=== PATIENT | female | born 1985 | race Caucasian/White ===

== ENCOUNTER 2018-11-30 09:31 | Emergency (ER) | payer OTHER ==
[~2018-11-30] VITALS: Ht 154.9 cm; Wt 68.0 kg
[~2018-11-30 09:31] MED LIST: Augmentin 500-1 EACH PO; IBUP800 PO; Norco 10-325 T1 EACH PO; ONDA4ODT MM; OXYACE5T PO; Verotin-Gr Cap1 EACH PO
[2018-11-30 10:17] LABS: BASOPHILS ABSOLUTE AUTO 0.08 K/mm3 (0.00-0.23); BASOPHILS PERCENT AUTO 1 % (0-2); EOSINOPHILS ABSOLUTE AUTO 0.16 K/mm3 (0.00-0.68); EOSINOPHILS PERCENT AUTO 2 % (0-6); Hematocrit 45.4 % (33.0-51.0); IMMATURE GRAN ABSOLUTE AUTO 0.06 K/mm3 (0.00-0.10); IMMATURE GRAN PERCENT AUTO 1 % (0-1); LYMPHOCYTES ABSOLUTE AUTO 1.57 K/mm3 (0.84-5.20); LYMPHOCYTES PERCENT AUTO 16 % (21-46); MONOCYTES PERCENT AUTO 8 % (4-13); Mean Corpuscular HGB 32.3 pg (26.0-34.0); Mean Corpuscular Volume 98 fL (80-100); Mean Platelet Volume 11.3 fL (9.1-12.4); NEUTROPHILS ABSOLUTE AUTO 7.08 K/mm3 (1.96-9.15); NEUTROPHILS PERCENT AUTO 73 % (41-73); Platelet Count 197 K/mm3 (150-400); RDW Coefficient Variation 11.9 % (11.7-14.2); RDW Standard Deviation 42.9 fL (35.1-46.3); Red Blood Cell Count 4.64 M/mm3 (3.80-5.20); White Blood Cell Count 9.75 K/mm3 (4.00-11.30)
[2018-11-30] MEDS ORDERED: CEFD300 PO (10:19)
[2018-11-30] MEDS ORDERED: METO50ER PO (10:20)
[2018-11-30 10:28] LABS: Source, Urine Clean Catch
[2018-11-30 10:35] LABS: Alanine Aminotransfer (ALT/SGP 291 U/L (12-78); Albumin, Blood 4.2 g/dL (3.4-5.0); Albumin/Globulin Ratio 0.9 (0.8-1.8); Alk Phos 91 U/L (50-136); Anion Gap 8 mmol/L (6-16); Aspartate Aminotrans (AST/SGOT 434 U/L (12-37); Bilirubin, Total 2.1 mg/dL (0.1-1.0); Blood Urea Nitrogen 8 mg/dL (8-24); Bun/Creatinine Ratio 14.3 (12.0-20.0); CO2, Blood 26 mmol/L (21-32); Calcium, Blood 9.1 mg/dL (8.5-10.1); Chloride, Blood 104 mmol/L (98-108); Creatinine, Blood 0.56 mg/dL (0.40-1.00); Globulin, Blood 4.5 g/dL (2.2-4.0); Glomerular Filtration Rate >60 (60-); Glucose, Blood 103 mg/dL (70-99); Potassium, Blood 3.1 mmol/L (3.5-5.5); Sodium, Blood 138 mmol/L (136-145); Total Protein, Blood 8.7 g/dL (6.4-8.2)
[2018-11-30 10:44] LABS: Appearance, Urine Clear (Clear); Bilirubin, Urine Neg (Neg); Blood, Urine 1+ (Neg); Color, Urine Yellow (P-Yellow); Glucose Qualitative, Urine Neg (Neg); Ketones, Urine 1+ (Neg); Leukocyte Esterase, Urine 1+ (Neg); Nitrite, Urine Neg (Neg); Protein, Urine Neg (Neg); Specific Gravity, Urine 1.005 (1.003-1.022); Urobilinogen, Urine NORM (Normal)
[2018-11-30 11:05] LABS: Bacteria Rare /hpf; Red Blood Cells, Urine Not Seen /hpf (0-2); Squamous Epithelial Cells Mod /hpf (Few); White Blood Cells, Urine 0-2 /hpf (0-5)
[2018-11-30] MEDS ORDERED: Zofran8 MG PO (13:52)
[2018-11-30 14:37] LABS: International Normalized Ratio 0.95; Prothrombin Time Results 10.1 Sec (9.7-11.5)
[2018-12-01 07:14] LABS: HBSAG SCREEN Negative (Negative); HCV ANTIBODY <0.1 (0.0-0.9); HEP A AB, IGM Negative (Negative); HEP B CORE AB, TOT Negative (Negative)
== END 2018-11-30 14:39 | disposition home or self-care (01) ==
LOC: ER 09:31
PROVIDERS: Physician Assistant
DX: K80.20 Calculus of gallbladder without cholecystitis without obstruction (principal); I10 Essential (primary) hypertension; Z79.899 Other long term (current) drug therapy; Z88.1 Allergy status to other antibiotic agents
CPT/HCPCS: 36415; 76705; 80053; 81001; 83690; 84703; 85025; 85610; 86317; 86704; 86709; 86803; 87086; 87340; 99284-25

== ENCOUNTER → 2019-01-22 | Outpatient (CLI) | payer OTHER ==
[~2019-01-22] MED LIST changes: +CEFD300 PO; +METO50ER PO; +Zofran8 MG PO
== END ==
LOC: LAB 13:21 → LAB SHORT 13:21
DX: E05.90 Thyrotoxicosis, unspecified without thyrotoxic crisis or storm (principal)
CPT/HCPCS: 84443

== ENCOUNTER → 2021-02-22 | Outpatient (CLI) | payer OTHER | END | disposition home or self-care (01) | LOC: LAB SHORT 13:20 → LAB 13:20 | DX: K92.1 Melena (principal); R19.7 Diarrhea, unspecified; R10.11 Right upper quadrant pain; R10.31 Right lower quadrant pain | CPT/HCPCS: 83993 ==

== ENCOUNTER → 2023-10-24 | Outpatient (CLI) | payer BC | END | disposition home or self-care (01) | LOC: LAB SHORT 16:56 → LAB 16:56 | DX: R21 Rash and other nonspecific skin eruption (principal) | CPT/HCPCS: 87070; 87077; 87147; 87186; 87205 ==

== ENCOUNTER 2024-03-17 07:27 | Day surgery (SDC) | payer BC ==
[~2024-03-17] VITALS: Ht 154.9 cm; Wt 46.8 kg
[2024-03-17] VITALS (11 sets, daily range): BP systolic 89–153; BP diastolic 51–96
[~2024-03-17 07:27] MED LIST changes: +CLOBETASOL EMOL15 G1 TOP; +Children's Che1 EAC1 PO; +FISH OIL PO; +PROBIOTIC; +Prinivil10 MG PO; +VITAMIN D3 PO; +VITAMINS LIPOTROPICS
[2024-03-17] MEDS ORDERED: CeFAZolin Sodium 2,000 MG in NS 100 ML IV SCH (08:10)
[2024-03-17] MEDS ORDERED: Lactated Ringer's 1,000 ML IV SCH (08:10)
[2024-03-17] MEDS ORDERED: FentaNYL Citrate 50 MCG/ML 2 ML Injection ONE ×2 (08:24→11:10)
[2024-03-17] MEDS ORDERED: propofoL 20 ML IV ONE (08:24)
[2024-03-17] MEDS ORDERED: Sugammadex Sodium 200 MG/2ML SDV (100 MG/ML) ONE (08:24)
[2024-03-17] MEDS ORDERED: Ondansetron HCl 2 MG / ML 2ML Vial ONE (08:25)
[2024-03-17] MEDS ORDERED: Dexamethasone Sod Phos 10 MG/ML 1ML VIAL ONE (08:25)
[2024-03-17] MEDS ORDERED: GABA300 PO (08:25)
[2024-03-17] MEDS ORDERED: Rocuronium Bromide 10 MG/ML 5ML Injection IV ONE (08:25)
[2024-03-17] MEDS ORDERED: PEPCID20 MG (08:25)
[2024-03-17] MEDS ORDERED: Ketorolac Tromethamine 30mg Vial ONE (08:25)
[2024-03-17] MEDS ORDERED: SERT50 PO (08:26)
[2024-03-17] MEDS ORDERED: Naltrexone HCl50 MG PO (08:26)
[2024-03-17] MEDS ORDERED: Midazolam HCl 1MG / ML 2ML Vial IV PRN (08:55)
[2024-03-17] MEDS ORDERED: Lidocaine HCl 1% 5 ML SYR INJ ONE (08:55)
[2024-03-17] MEDS ORDERED: Bupivacaine 0.5% HCl 5 MG/ML 30MLVIAL ONE (09:26)
[2024-03-17] MEDS ORDERED: Dexmedetomidine HCL 200 MCG / 2 ML ONE (09:29)
[2024-03-17] MEDS ORDERED: Phenylephrine HCl 100 MCG/ML-NS 10MLSYR (1MG/10ML) ONE (10:33)
[2024-03-17] MEDS ORDERED: HYDROcodone 5-APAP 325 TAB PO PRN (11:10)
[2024-03-17] MEDS ORDERED: Lactated Ringer's 1,000 ML IV ONE (11:27)
--- NOTE | 2024-03-17 12:29 | NUR ---
Patient up to Ambulate independently. Gait steady. Discharge instructions reviewed with patient. Patient verbalizes understanding. Copy given to patient to take home, [facility]. Patient States Post-Procedure ride home has been arranged. Discharged via wheelchair to private car for ride home. PT DRESSINGS C/D/I. PT TOLERATING PO. PT DENIES N/V,SOB, CP. PT REPORTS PAIN TOLERABLE. REPORTS READY TO GO HOME.
== END 2024-03-17 12:29 | disposition home or self-care (01) ==
LOC: ORSCMMR 07:27 → ORD 09:00 → ORSCMMR 12:29
PROVIDERS: Surgery
PROC: 0FT44ZZ Resection of Gallbladder, Percutaneous Endoscopic Approach (ICD-10-PCS; principal; 2024-03-17 09:00)
DX: K80.10 Calculus of gallbladder with chronic cholecystitis without obstruction (principal); F41.9 Anxiety disorder, unspecified; I10 Essential (primary) hypertension; Z79.899 Other long term (current) drug therapy
CPT/HCPCS: 84703; 88304; A9270; J0690; J1100; J1885; J2250; J2371; J2405; J2704; J3010; J7120